=== PATIENT | male | born 1975 | race Hispanic/Latino ===

== ENCOUNTER → 2019-10-04 | Outpatient (CLI) | payer BC | END | disposition home or self-care (01) | LOC: OIH 09:28 | PROVIDERS: ATTEND Internal Medicine | DX: M19.042 Primary osteoarthritis, left hand (principal); G58.9 Mononeuropathy, unspecified; K75.81 Nonalcoholic steatohepatitis (NASH); R20.0 Anesthesia of skin; R20.2 Paresthesia of skin | CPT/HCPCS: 73120 ==